=== PATIENT | female | born 1990 | race Caucasian/White ===

== ENCOUNTER 2016-09-17 09:55 | Emergency (ER) ==
--- NOTE | 2016-09-17 10:13 | PROVIDER DOCUMENTATION ---
HPI-Female /OB/Breast <Aaliyah Quiles X - Last Filed: 09/17/16 11:35> - General Source: reports: patient - History of Present Illness-Female /OB Does patient report she is ?: Yes Location of complaint: reports: other (bilateral abd) Quality of Pain: reports: aching Severity in ED: reports: moderate Onset/Duration: reports: this morning Timing: reports: still present Urinary Symptoms: reports: low back pain Related Symptoms: reports: abdominal pain Leakage of Fluid: none Similar Symptoms Previously?: No Recently seen or treated by another doctor?: No <BrockJuliaaguilar - Last Filed: 09/17/16 11:38> - General Chief Complaint: Back Pain Stated Complaint: BACK PAIN/ Time Seen by Provider: 09/17/16 09:57 Allergies/Adverse Reactions: Patient Allergies Allergy/AdvReac Type Severity Reaction Status Date / Time influenza virus vaccine, Allergy Mild RASH Verified 08/22/14 19:11 specific [influenza virus vacc,specific] oxycodone HCl * AdvReac Intermediate NAUSEA/VOMI Verified 02/09/15 13:09 [From Percocet] TING Home Medications: Home Medication List Medication Instructions Recorded Confirmed Last Taken Type Meclizine [Antivert] 12.5 mg PO TID #30 tablet 02/23/16 Unknown Rx Ondansetron Odt [Zofran 8Mg Odt] 8 mg PO Q8H PRN PRN #20 tablet 02/23/16 Unknown Rx Azithromycin [Zithromax Z-Suresh] 250 mg PO DIRECTED #1 pkg 09/17/16 Unknown Rx Nitrofurantoin Monohyd/M-Cryst 100 mg PO BID #14 capsule 09/17/16 Unknown Rx [Macrobid 100 mg Capsule] - History of Present Illness-Female /OB Nature of Presenting Problem: Pt is a 26 yof that is A1 that presents to er with cc of lower back pain and bilateral abd pain onset this am. Reports she didn't know she was until 3 weeks ago when she felt a flutter in her abdomen at that time did a test. Pt reports Hx of PCOS. Pt has not had any care at this time. Reports she is approximately 18.5 weeks but unsure. Denies no vaginal discharge,dysuria,vaginal bleeding or gush. Reports this pain feels like when she had her other children. (Stacia Gutiérrez) Review of Systems - Adult - REVIEW OF SYSTEMS - ADULT Constitutional: denies: chills, fever, fatique Eyes: reports: no symptoms reported Ears, Nose, Mouth & Throat: reports: no symptoms reported Cardiovascular: denies: chest pain, irregular heart rate, orthopnea, syncope Respiratory: reports: no symptoms reported Gastrointestinal: reports: abdominal pain. denies: diarrhea, difficulty swallowing, frequent heartburn, nausea, vomiting Genitourinary: reports: see HPI. denies: dysuria, discharge, frequency, frequent UTI's, hematuria, hesitency, incontinence Musculoskeletal: reports: back pain. denies: bone pain, frequent leg cramps, joint pain, joint swelling Integumentary: denies: hives, mole changes, nail changes, skin thickening Neurological: reports: no symptoms reported Psychiatric: reports: no symptoms reported Endocrine: reports: no symptoms reported Hematologic/Lymphatic: reports: no symptoms reported Allergic/Immunologic: reports: no symptoms reported All Other Systems: Reviewed and Negative <Stacia Gutiérrez - Last Filed: 09/17/16 11:38> Past History - Adult - PAST MEDICAL HISTORY-ADULT Review of Records: reports: Nursing Assessment Review, Medications Reviewed <Aaliyah Quiles - Last Filed: 09/17/16 11:35> - PAST MEDICAL HISTORY-ADULT Review of Records: reports: Nursing Assessment Review, Medications Reviewed Major Childhood Illnesses: reports: denies history Cardiovascular: reports: denies history Respiratory: reports: denies history Gastrointestinal: reports: denies history Obstetrical/Gynecological: reports: other ( A1; PCOS) Genitourinary: reports: denies history Musculoskeletal: reports: denies history Neurological: reports: denies history Endocrine/Immune: reports: anemia Other Conditions: reports: denies history - PRIOR SURGERIES/PROCEDURES Surgical/Procedure History: reports: tonsillectomy, other (D&C) - PRIOR HOSPITALIZATIONS Prior Hospitalizations: reports: none - IMMUNIZATION STATUS Childhood Immunizations: See Nurse Assessment Flu Vaccine: See Nurse Assessment - FAMILY HISTORY Family History: reviewed, not pertinent - SOCIAL HISTORY Smoking: denies Substance Use: none/never <Stacia Gutiérrez - Last Filed: 09/17/16 11:38> Physical Exam-General - PHYSICAL EXAM-ADULT Initial Vital Signs Reviewed: Yes - CONSTITUTIONAL General Appearance: appears well, alert, mild distress - EYES Eyes: PERRL/EOMI - HEAD, EARS, NOSE, MOUTH & THROAT HENMT: moist mucous membranes, normal ENT inspection, TMs normal, pharynx normal - RESPIRATORY Respiratory: chest non-tender, lungs clear, normal breath sounds, no pleuratic chest pain, no respiratory distress, no accessory muscle use - CARDIOVASCULAR Cardiovascular: regular rate, rhythm, no edema, no gallop, no JVD, no murmur - GASTROINTESTINAL (ABDOMEN) Abdominal Exam: soft, no organomegaly, no pulsatile mass - MUSCULOSKELETAL Back Exam: normal inspection, no CVA tenderness, no vertebral tenderness Extremity: normal range of motion, non-tender, normal gait - SKIN Integumentary: normal color, normal turgor, warm/dry - NEUROLOGIC Neurologic: grossly normal - PSYCHIATRIC Psych/Mental Status: normal mood/affect, normal thought content, normal thought process, oriented x 3 <Stacia Gutiérrez - Last Filed: 09/17/16 11:38> Progress - CONSULTS/PCP/HOSPITALIST Notification Time Discussed: 11:35 Reason/Comments: Consulted Dr. Blas - f/u at office. Does not need monitor at [facility] for now <KbAaliyah X - Last Filed: 09/17/16 11:35> - ULTRASOUND (By Radiology) 1 US Study: Abdomen Impression: Abnormal (Single viable intrauterine gestation with no gross anomalies appreciated.) <Stacia Gutiérrez - Last Filed: 09/17/16 11:38> - PLAN OF CARE/RESULTS Progress/Plan/Lab Results: Orders Category Date Time Status US TRANSVAGINAL OB [US] Stat Exams 09/17/16 10:03 Ordered ABORH [BBK] Stat Lab 09/17/16 10:06 Ordered CBC WITH DIFF [HEME] Stat Lab 09/17/16 10:06 Ordered COMPREHENSIVE METABOLIC PANEL [CHEM] Stat Lab 09/17/16 10:06 Ordered TEST-URINE [PREG] Stat Lab 09/17/16 10:06 Ordered QUANT TEST Stat Lab 09/17/16 10:06 Ordered UA NIMS W/REFLEX CULT [URINALYSIS] Stat Lab 09/17/16 10:06 Ordered Vital Signs - 24 hr 09/17/16 10:03 Temperature 98.6 F Pulse Rate 98 H Respiratory 20 Rate Blood Pressure 135/86 O2 Sat by Pulse 100 Oximetry MD Quiles discussed ultrasound and blood work would be done and if she needed to be transferred to [facility] thats what we would do. Laboratory Tests 09/17/16 09/17/16 09/17/16 10:11 10:11 10:11 WBC RBC Hgb Hct MCV MCH MCHC RDW Std Deviation Plt Count MPV Immature Gran % (Auto) Neut % (Auto) Lymph % (Auto) [place] % (Auto) Eos % (Auto) Baso % (Auto) Immature Gran # (Auto) Neut # (Auto) Lymph # (Auto) [place] # (Auto) Eos # (Auto) Baso # (Auto) Sodium Potassium Chloride Carbon Dioxide Anion Gap BUN Creatinine Estimated GFR/1.73 m2 BUN/Creatinine Ratio Glucose Calculated Osmolality Calcium Total Bilirubin AST ALT Alkaline Phosphatase Total Protein Albumin Globulin Albumin/Globulin Ratio Ser , Semi-Qnt Urine Source CLEAN CATCH Urine Color YELLOW Urine Turbidity CLEAR Urine pH 7.5 Ur Specific [place] 1.020 Urine Protein TRACE A Ur Glucose (Stick) NEGATIVE Ur Ketones (Stick) NEGATIVE Urine Blood NEGATIVE Urine Nitrite NEGATIVE Urine Bilirubin NEGATIVE Urobilinogen Dipstick NORMAL Urine Leukocytes SMALL A Urine WBC (Auto) <10 Urine RBC (Auto) <10 U Epithel Cells (Auto) >10 A Urine Bacteria (Auto) 1+ Urine Test POSITIVE Blood Type O POSITIVE 09/17/16 09/17/16 09/17/16 10:11 10:11 10:11 WBC 7.36 RBC 3.63 L Hgb 11.5 L Hct 33.6 L MCV 92.6 MCH 31.7 H MCHC 34.2 RDW Std Deviation 13.4 Plt Count 125 L MPV 10.7 H Immature Gran % (Auto) 0.3 Neut % (Auto) 76.0 H Lymph % (Auto) 12.5 L [place] % (Auto) 7.9 Eos % (Auto) 2.9 Baso % (Auto) 0.4 Immature Gran # (Auto) 0.02 Neut # (Auto) 5.60 Lymph # (Auto) 0.92 L [place] # (Auto) 0.58 Eos # (Auto) 0.21 Baso # (Auto) 0.03 Sodium 137 Potassium 3.8 Chloride 102 Carbon Dioxide 23 L Anion Gap 12 BUN 6 L Creatinine 0.5 Estimated GFR/1.73 m2 > 60 BUN/Creatinine Ratio 12 Glucose 83 Calculated Osmolality 271 Calcium 9.1 Total Bilirubin 0.42 AST 14 ALT 11 Alkaline Phosphatase 59 Total Protein 7.3 Albumin 3.9 Globulin 3.4 Albumin/Globulin Ratio 1.1 Ser , Semi-Qnt 04139.0 Urine Source Urine Color Urine Turbidity Urine pH Ur Specific [place] Urine Protein Ur Glucose (Stick) Ur Ketones (Stick) Urine Blood Urine Nitrite Urine Bilirubin Urobilinogen Dipstick Urine Leukocytes Urine WBC (Auto) Urine RBC (Auto) U Epithel Cells (Auto) Urine Bacteria (Auto) Urine Test Blood Type (Stacia Gutiérrez) Departure - Departure Certified Medical Emergency: Emergent <Aaliyah Quiles - Last Filed: 09/17/16 11:35> - Departure Time of Disposition Order: 11:38 Certified Medical Emergency: Emergent <Stacia Gutiérrez - Last Filed: 09/17/16 11:38> - Departure DIAGNOSIS: 21 weeks gestation of Sinusitis Qualifiers: Sinusitis location: unspecified location Chronicity: acute Recurrence: not specified as recurrent Qualified Code(s): J01.90 - Acute sinusitis, unspecified UTI (urinary tract infection) Qualifiers: Urinary tract infection type: acute cystitis Hematuria presence: without hematuria Qualified Code(s): N30.00 - Acute cystitis without hematuria Disposition: HOME 01 Condition: Stable Prescriptions: Nitrofurantoin Monohyd/M-Cryst [Macrobid 100 mg Capsule] 100 mg PO BID #14 capsule Azithromycin [Zithromax Z-Suresh] 250 mg PO DIRECTED #1 pkg Referrals: None,PCP [Primary Care Provider] - Ryan Blas MD [STAFF PHYSICIAN] - Attestation - Scribe Verification/Attestation Scribe:: Stacia Gutiérrez Acting as Scribe for:: Aaliyah Quiles Scribe documention review:: This chart was documented by a scribe and accurately reflects the service the provider performed and the decisions made by the provider. <Stacia Gutiérrez - Last Filed: 09/17/16 11:38> Physician Attestation - Physician Attestation I, the provider, attest to the following statement:: Aaliyah Quiles Physician documentation Attestation:: This documentation recorded by the scribe accurately reflects the service I personally performed and the decisions made by me. <Stacia Gutiérrez - Last Filed: 09/17/16 11:38>
[2016-09-17 10:18] LABS: MANUAL DIFF NEEDED? NO; URINE MICRO REVIEW NEEDED? NO; URINE SOURCE CLEAN CATCH
[2016-09-17 10:26] LABS: BASO% 0.4 % (0.0-0.8); EOS# 0.21 X1000 (0.0-0.7); EOS% 2.9 % (0.0-10.0); HEMATOCRIT 33.6 % (37.0-47.0); HEMOGLOBIN 11.5 g/dL (12.0-16.0); IMM GRAN# 0.02 X1000 (0.0-0.04); IMM GRAN% 0.3 % (0.0-0.5); LYMPH# 0.92 X1000 (1.2-3.4); LYMPH% 12.5 % (20.5-51.1); MCH 31.7 PG (27-31); MCHC 34.2 g/dL (33-37); MCV 92.6 FL (81-99); MONO# 0.58 X1000 (0.11-0.59); MONO% 7.9 % (1.7-9.3); MPV 10.7 FL (7.4-10.4); PLT 125 X1000 (130-400); RBC 3.63 XMIL (4.2-5.4)
[2016-09-17 10:35] LABS: BILIRUBIN URINE NEGATIVE (NEGATIVE); BLOOD URINE NEGATIVE (NEGATIVE); COLOR YELLOW; GLUCOSE URINE NEGATIVE (NEGATIVE); LEUKOCYTES URINE SMALL (NEGATIVE); NITRITE URINE NEGATIVE (NEGATIVE); PH URINE 7.5; PROTEIN URINE TRACE mg/dL (NEGATIVE); TURBIDITY URINE CLEAR (CLEAR); UROBILINOGEN URINE NORMAL (NORMAL)
[2016-09-17 10:36] LABS: UR EPITHELIAL CELLS >10 /HPF (<10); URINE BACTERIA 1+ /HPF; URINE CULTURE NEEDED? YES; URINE RBC <10 /HPF (<10); URINE WBC <10 /HPF (<10)
[2016-09-17 11:02] LABS: AGAP 12; ALBUMIN 3.9 g/dL (3.5-5.0); ALKALINE PHOSPHATASE 59 U/L (32-104); BUN 6 mg/dL (8-22); CALCIUM 9.1 mg/dL (8.8-10.2); CHLORIDE 102 mmol/L (98-107); COSMO 271; GOT 14 U/L (10-30); GPT 11 U/L (10-36); POTASSIUM 3.8 mmol/L (3.5-5.1); SODIUM 137 mmol/L (136-145); TCO2 23 mmol/L (25-35); TOTAL BILIRUBIN 0.42 mg/dL (0.20-1.00); TOTAL PROTEIN 7.3 g/dL (6.3-8.3)
--- NOTE | 2016-09-17 11:11 | Diag Imaging Result Document ---
PROCEDURE NAME: US OBS COMPLETE > 14 WKS - 09/17/2016 OBSTETRIC ULTRASOUND: COMPARISON: 02/23/2016. FINDINGS: There is a single viable intrauterine gestation. The fetus is in vertex presentation and the placenta is located anteriorly. The cervix is closed measuring up to 3.8 cm in length. No gross or placental anomalies are identified. Specifically, a 4-chamber heart, 3-vessel umbilical cord, bladder, kidneys, stomach, and spine are identified and are unremarkable. The amniotic fluid level is subjectively normal. The measured heart rate is 153 beats per minute. The gestational age by ultrasound is 21 weeks 2 days +/-10 days. IMPRESSION: Single viable intrauterine gestation with no gross anomalies appreciated.
[2016-09-17 11:44] VITALS: BP 136/97
== END 2016-09-17 11:46 | disposition home or self-care (01) ==
LOC: ED 09:55
DX: O23.12 Infections of bladder in pregnancy, second trimester (principal); N30.00 Acute cystitis without hematuria; O26.892 Other specified pregnancy related conditions, second trimester; J01.90 Acute sinusitis, unspecified; M54.5 Low back pain; R10.9 Unspecified abdominal pain; Z3A.21 21 weeks gestation of pregnancy
CPT/HCPCS: 76805; 80053; 81001; 81025; 84702; 85025; 86900; 86901; 87088